=== PATIENT | female | born 1965 | race Caucasian/White ===

== ENCOUNTER → 2017-05-02 09:19 | Outpatient (CLI) | payer BC, SELFPAY ==
--- NOTE | 2017-05-02 09:21 | MM_ITS ---
MM Dig screening mamm BI w/CAD CAD Screening ORDERING PHYSICIAN : Rai Chávez MD PATIENT AGE: 51 years GENDER: Female COMPARISON: Previous mammograms: March 2015, September 2013 INDICATION: Does takes estrogen.. No new complaints. Family history. Maternal grandmother postmenopausal TECHNIQUE: Standard CC and MLO images were obtained. R2 CAD reviewed. FINDINGS: Mild to moderate fibroglandular elements throughout both breasts. No significant new findings. No dominant mass. No suspicious calcifications. Stable mild asymmetry. RIGHT BREAST: Slightly more evident glandular density inferior right breast is a stable feature with no new findings. LEFT BREAST:Stable appearing left breast with no new areas of concern. IMPRESSION: Stable bilateral mammogram with no significant new findings. Follow-up in one year adequate BI-RADS Category: 1 Negative RECOMMENDED FOLLOW-UP: 1YR - 1 YEAR FOLLOW-UP (A letter has been sent to the patient regarding results of the study.)
== END ==
PROVIDERS: Family Provider Family Medicine; PCP Family Medicine; Visit Provider Obstetrics & Gynecology
DX: Z12.31 Encounter for screening mammogram for malignant neoplasm of breast (principal)
CPT/HCPCS: 77067

== ENCOUNTER → 2017-08-08 13:20 | Outpatient (CLI) | payer BC, SELFPAY ==
--- NOTE | 2017-08-08 13:29 | CA_ITS ---
PROCEDURE: 2-D M-mode and color Doppler study INDICATIONS FOR THE TEST: Chest pain COPD Heart Murmur Tobacco Smoking+ Palpitations+ Fatigue Syncope Edema Hypertension+Diabetes Mellitus Rheumatic Fever SOB FRAZIER Obesity+Hyperlipidemia+ Family History HD Additional History PATIENT INFORMATION HEIGHT:64 WEIGHT:225 GENDER: Female B/P:130/74 2-D/M-MODE INTERPRETATION: 2-D MEASUREMENTS OBSERVED VALUES IN CMS Right Ventricular Dimension (RVDd) 2.7 Interventricular Septum (Thickness)(IVsd) 0.7 Left Ventricular Internal Dimensions(LVIDd) 4.6 Left Ventricular Posterior Wall (Thickness)(LVPWd) 1.1 Aortic Root 3.0 Aortic Cusp Separation 2.2 Left Atrial Dimensions (LAD) 4.2 2D 1. Left atrium is mildly enlarged, left ventricle is normal size, there is mild qualitative concentric left ventricular hypertrophy, visually estimated ejection fraction 55% with no obvious regional wall motion abnormality. 2. The right atrium and right ventricle are mildly enlarged with normal contractility. 3. The aortic valve is minimally thickened and fibrosed. 4. The mitral and tricuspid valve leaflets are grossly normal. 5. The pulmonic valve is poorly visualized 6. No significant pericardial effusion noted. DOPPLER INTERROGATION: Doppler interrogation of the aortic, mitral and tricuspid valvular presence of mild mitral and tricuspid regurgitation, tricuspid regurgitant jet velocity is insufficient for calculation of the right ventricular systolic pressure, grade 1 diastolic dysfunction seen without tissue Doppler evidence of raised left atrial pressure. CONCLUSION: 1. Mildly enlarged left atrium, normal left ventricular size, mild qualitative concentric left ventricular hypertrophy, visually estimated ejection fraction of 55% with no obvious regional wall motion abnormality. Grade 1 diastolic dysfunction seen without tissue Doppler evidence of raised left atrial pressure. 2. Mild mitral and tricuspid regurgitation 3. No significant pericardial effusion noted.
== END ==
PROVIDERS: Family Provider Family Medicine; PCP Family Medicine; Visit Provider Family Medicine
DX: R00.2 Palpitations (principal)
CPT/HCPCS: 93225; 93226; 93306

== ENCOUNTER → 2017-10-31 16:02 | Outpatient (CLI) | payer BC, SELFPAY ==
--- NOTE | 2017-10-31 16:13 | MR_ITS ---
MR knee LT wo con Ordering Physician: Mesis Whitley MD Patient Age: 52 years: Female HISTORY: ITS.REASON: ACUTE PAIN OF LEFT KNEE Positive Yaima sign. Effusion. Posterior knee pain. Evans a pop posterior aspect of knee. Instability one month. No trauma. No prior. TECHNIQUE: Multiplanar multisequence imaging 1.5 the MR. COMPARISON : No comparison studies. No plain films available. FINDINGS Tricompartmental arthritic changes. Tricompartmental marginal osteophytes moderately pronounced. . Focal hypertrophic changes at and anterior to the anterior tibial spine on sagittal image . Medial Compartment. Suggestive some minor chondral thinning and scuffing likely at the medial weightbearing surface of medial femoral condyle reflecting early degenerative changes. MEDIAL MENISCAL TEAR There is mild truncation at the posterior horn of the medial meniscus. Appears to be at Vertical oriented, radial tear (seen on sagittal image 10, axial 20, coronal 19, & 20) Lateral compartment . Cartilage is better maintained at the lateral femoral condyle with only some minor chondral signal irregularities posterior weightbearing surface. A may reflect some minimal chondral scuffing and irregularity. Small cystic cystic area measuring 12 x 10 mm cm just posterior to the lateral compartment. On sagittal images it appears to taper, & leads towards the meniscal-capsular junction region, but I do not see a corresponding meniscal tear. Most likely merely a small incidental synovial cyst ACL, PCL intact nicely viewed. Medial and lateral collateral ligaments intact. The quadriceps and patellar tendon intact. Patellofemoral joint. Fairly normal relationships with slight lateral dominant patellofemoral joint. Appears to be diffuse cartilage thinning at the lateral facet of patella. Marginal osteophytes surrounding margin of patella most evident superiorly and lateral margins. Joint effusion most evident at the suprapatellar bursa and its lateral aspect. Fluid overlying theq lateral margin of femoral condyle. There is also some mild edema in surrounding soft tissues about the joint with moderately pronounced superficial varicosities throughout the knee length. IMPRESSION: ...... 1. Medial meniscal tear . Prominent vertical radial tear of the posterior horn 2.. Moderate Joint effusion.. 3. Developing tricompartmental arthritic changes at the knee. ... Tricompartmental marginal osteophytes ... Chondral scuffing and irregularity, most evident at medial femoral condyle> medial compartment .... Diffuse chondral thinning and loss at the lateral facet patella 4. Other minor observations. ... Small 10 x 12 mm synovial cysts along posterior margin of the lateral compartment.. No associated meniscal tear identified ... Prominent superficial varicosities
== END ==
PROVIDERS: Family Provider Family Medicine; PCP Family Medicine; Visit Provider Family Medicine
DX: M25.562 Pain in left knee (principal); M25.462 Effusion, left knee; S83.207A Unspecified tear of unspecified meniscus, current injury, left knee, initial encounter
CPT/HCPCS: 73721

== ENCOUNTER → 2017-12-26 15:08 | Outpatient (CLI) | payer BC, SELFPAY ==
--- NOTE | 2017-12-26 15:10 | XR_ITS ---
XR foot wt bearing LT 3V HISTORY: ITS.REASON: pain ORDERING PHYSICIAN: Sherry Perez DPM PATIENT AGE: 52 years COMPARISON: None FINDINGS: No fracture or dislocation. No lytic or blastic change. There is normal mineralization.. The joint spaces are well-preserved. No significant degenerative/arthritic changes. No erosive changes evident. Minimal hypertrophic changes are present along the dorsal aspect of the navicular and cuneiforms. There is a small calcaneal spur at 6 mm. IMPRESSION: Minimal degenerative changes of the midfoot with a small calcaneal spur, no acute finding
--- NOTE | 2017-12-26 15:10 | XR_ITS ---
XR foot wt bearing RT 3V HISTORY: ITS.REASON: pain ORDERING PHYSICIAN: Sherry Perez DPM PATIENT AGE: 52 years COMPARISON: None FINDINGS: No fracture or dislocation. No lytic or blastic change. There is normal mineralization.. The joint spaces are well-preserved. No significant degenerative/arthritic changes. No erosive changes evident. There is a small calcaneal spur at 8 mm. IMPRESSION: Small calcaneal spur otherwise negative
== END ==
PROVIDERS: PCP Family Medicine; Visit Provider Podiatrist
DX: M72.2 Plantar fascial fibromatosis (principal)
CPT/HCPCS: 73630

== ENCOUNTER 2018-02-06 10:00 | Outpatient (RCR) | payer BC, SELFPAY ==
--- NOTE | 2018-01-02 13:37 | HMH.PTOPEV ---
PT Outpatient Evaluation Rehab PT Outpatient Evaluation Start: 01/02/18 13:25 Freq: Status: Active Protocol: Document 01/02/18 13:25 JANE (Rec: 01/02/18 13:37 JANE [id number]) Electronically Signed By Ab Melton, PT 01/02/18 13:25 Outpatient Therapy Subjective History Subjective History Pt reports insidious onset chronic R heel/foot pain beginning ~9-10 months ago. Pt reports multiple Rx's to R foot with very minimal improvement, includes steroid injections, cryotherapy, TE, orthotics, etc. Pt reports pain w/all wt. bearing activities, mostly medial aspect of R heel. Chief Complaint Pain Swelling Symptom Type Sharp Symptoms Relieved By Rest/Positioning Ice Symptoms Aggravated By Standing Physical Activity Walking Prior Functional Limitations Housework Standing Walking Current Functional Limitations Housework Standing Walking Symptom Description Intermittent Level of pain today (0-10) 5 Pain scale - at its best (0-10) 0 Pain scale - at its worst (0-10) 9 Ankle/Foot Eval Gait Observation General Gait Pattern Observation Antalgic Gait Assistive Device Ambulation Assistive Device None Palpation Tenderness right Ankle/Foot Palpation Findings Tenderness Trigger Point Ankle/Foot Palpation Overall Comment R GASTROC AND SOLEUS, R POST. TIB INSERTION, R PLANTAR FASCIA INSERTION ROM Ankle/Foot Dorsiflexion w/Knee Extended 0-10 Active Range Motion (degrees) Ankle/Foot Plantar Flexion Active Range 0-45 of Motion (degrees) Ankle/Foot Eversion Active Range of 0-25 Motion (degrees) Ankle/Foot Inversion Active Range of 0-50 Motion (degrees) Ankle/Foot ROM Reason Not Measured Within Functional Limits MMT Ankle Dorsiflexion Strength Grade 5 Normal Ankle Plantarflexion Strength Grade 5 Normal Foot Eversion Strength Grade 4 Good Foot Inversion Strength Grade 4 Good Outpatient Therapy Assessment Impairments Problems/Impairmments Palpation Tenderness Impaired Range of Motion Impaired Strength
== END 2018-02-06 10:01 | disposition home or self-care (01) ==
LOC: PT 10:00
PROVIDERS: Family Provider Family Medicine; PCP Family Medicine; Visit Provider Podiatrist
DX: M72.2 Plantar fascial fibromatosis (principal)
CPT/HCPCS: 97010; 97014; 97033; 97035; 97110; 97140; 97163; G0283

== ENCOUNTER → 2018-05-05 10:12 | Outpatient (CLI) | payer BC, SELFPAY ==
--- NOTE | 2018-05-05 10:14 | MM_ITS ---
MM Dig screening mamm BI w/CAD CAD Screening COMPARISON: Digital mammograms with CAD 05/02/2017 and 04/20/2016 INDICATION: There is a history of breast cancer in a patient maternal grandmother TECHNIQUE: Standard CC and MLO images were obtained. R2 CAD reviewed. FINDINGS: Moderate diffuse fibroglandular densities are seen in both breasts again slightly more prominent right breast than left there are couple mole markers left breast. There is a benign-appearing calcification in each breast. There is no new or suspicious lesion in either breast and there are no suspicious microcalcifications. IMPRESSION: Stable exam no suspicious lesion seen BI-RADS Category: 2 Benign Finding(s) RECOMMENDED FOLLOW-UP: 1YR - 1 YEAR FOLLOW-UP (A letter has been sent to the patient regarding results of the study.)
== END ==
PROVIDERS: PCP Family Medicine; Visit Provider Obstetrics & Gynecology
DX: Z12.31 Encounter for screening mammogram for malignant neoplasm of breast (principal)
CPT/HCPCS: 77067

== ENCOUNTER → 2018-07-20 08:29 | Outpatient (CLI) | payer BC, SELFPAY ==
--- NOTE | 2018-07-20 08:30 | MR_ITS ---
MR ankle RT wo/w con , MR foot RT wo/w con Ordering Physician: Sherry Perez DPM Patient Age: 53 years: Female HISTORY: ITS.REASON: pain right foot pain] plantar fasciitis. Pain extends to the back of the heel when she walks. Also right Achilles tendinitis TECHNIQUE: 1. MRI right ankle with and without contrast 2. MRI right foot with and without contrast COMPARISON 3 views right foot 12/26/2017, weightbearing: RevealedCalcaneal spurs 1. MRI RIGHT ANKLE with & without contrast Diffuse superficial soft tissue swelling is seen throughout the lower leg but becoming evident towards the along the dorsal aspect of the foot and ankle.. Lateral Ankle.. Anterior talofibular & anterior tibiofibular ligament are intact. Posterior tibial and talofibular ligament intact as well.. Normal relationships. Lateral ankle Laterally the peroneus brevis and longus tendons appear intact with normal signal. Medial ankle.: Joint space maintained Medially tibialis posterior tendon, as well as F HL and FDL appear intact. Normal signal. The dome of the talus and ankle mor no fluid. . Subtalar joint intact unremarkable.No reactive bone changes or bone edema.. Modest plantar arch 2 MRI RIGHT FOOT with & without contrast . Between these 2sets of images the Achilles tendon itself demonstrates normal signal. Note spurring at the insertion Achilles tendon but no inflammation is seen at the tendon insertion.. Homogeneous dark signal at the Achilles but with no enlargement nor enhancement. Only Minimal SQ edema fluid diffusely along the posterior margin of Achilles tendon noted. The plantar aponeurosis actually appears to be well maintained as well,. No areas of focal thickening nor enhancement nor focal edema. Only some upper normal signal at insertion of the plantar aponeurosis upon and a generous sized plantar calcaneal spur. Postcontrast images show no enhancement here. No fluid collection. The remaining aspect of the plantar aponeurosis a beneath the midfoot and towards the forefoot appears fairly smooth and satisfactory, with no definitive areas of focal thickening or inflammation The tarsals and metatarsals demonstrate fairly normal signal throughout. Only note a small focus of increased signal at the lateral distal corner of the lateral cuneiform bone, ( axial slice 17 & 16). Minor enhancement here. Suspect small subchondral cyst. Question minor associated,, upper normal enhancement at the base of the third & fourth metatarsals near where it articulates. Barely appreciable On axial postcontrast image 18. . Note increased soft tissue signal throughout the dorsal lateral aspect of forefoot on post enhancement studies-most evident at soft tissues posterior to the 4-5 and 3-4 metatarsal head interspace, with this increased signal continuing into the toes. However I suspect this may merely reflect Field inhomogeneous artifact within significant enhancement due to the inhomogeneity.. There is edema in this soft tissue of this region. Which is abnormal with a primary observation. However the signal changes here Requires correlation as I could not exclude soft tissue inflammation/cellulitis --IMPRESSION./ SUMMARY --- 1.. Generous Subcutaneous edema & soft tissue swelling seen lower throughout leg, ankle & into the foot. Most Prominent Soft tissue swelling/edema Most pronounced along the dorsal aspect foot & ankle-, dorsal to the tarsals & extending laterally 2. . No prominent bone signal changes at ankle or foot. No focal bone contusion 3. Only Tiny focus increased signal enhancement at distal lateral corner of the lateral cuneiform bone.. Suspect small developing subchondral cyst and scant arthritic changes here. 4. Achilles tendon with normal signal & appea
== END ==
PROVIDERS: PCP Family Medicine; Visit Provider Podiatrist
DX: M76.61 Achilles tendinitis, right leg (principal); M72.2 Plantar fascial fibromatosis
CPT/HCPCS: 73720; 73723

== ENCOUNTER → 2018-07-26 11:24 | Outpatient (CLI) | payer BC, SELFPAY ==
[2018-07-26 13:03] LABS: Basophils # 0.1 K/mm3 (0-0.2); Basophils % 0.5 % (0.1-2.0); Eosinophils # 0.3 K/mm3 (0.0-0.4); Eosinophils % 3.5 % (0.1-12.0); Hematocrit 41.1 % (37.0-47.0); Lymphocytes # 1.9 K/mm3 (0.7-4.5); Lymphocytes % 19.7 % (10-50); Mean Corpuscular HGB Conc 34.1 g/dL (31.8-35.4); Mean Corpuscular Hemoglobin 31.7 pg (27.0-31.2); Mean Platelet Volume 7.8 fl (7.4-10.4); Monocytes # 0.5 K/mm3 (0.1-1.0); Monocytes % 4.7 % (1.7-9.3); Neutrophils % 71.7 % (37.0-80.0); Platelet Count 264 K/mm3 (142-424); Red Blood Count 4.41 M/mm3 (4.20-5.40); Red Cell Distribution Width 13.1 % (11.5-17.5); White Blood Count 9.8 K/mm3 (4.8-10.8)
[2018-07-26 13:54] LABS: Erythrocyte Sedimentation Rate 16 mm/hr (0-30)
[2018-07-26 14:33] LABS: Alanine Aminotransferase 20 U/L (12-78); Albumin Level 3.3 gm/dL (3.4-5.0); Alkaline Phosphatase 80 U/L (46-116); Anion Gap 16.9 mEq/L (5-15); Aspartate Amino Transferase 16 U/L (15-37); Bilirubin,Total 0.3 mg/dL (0.2-1.0); Blood Urea Nitrogen 13 mg/dL (7-18); C-Reactive Protein < 0.2 mg/L (0.0-0.9); Carbon Dioxide 26 mmol/L (21.0-32.0); Chloride 103 mmol/L (98-107); Creatinine,Serum 0.75 mg/dL (0.55-1.02); Estimated Glomerular Filt Rate 81 ml/min (>60); GFR (African American) 97 ML/MIN (>60); Globulin 3.4 gm/dl (1.3-3.2); Glucose 96 mg/dL (74-106); Potassium 3.9 mmoL/L (3.5-5.1); Sodium 142 mmol/L (136-145); Total Protein,Serum 6.7 gm/dL (6.4-8.2); Uric Acid 5.8 mg/dL (2.6-7.2)
[2018-07-27 10:02] LABS: RA Latex Turbid. <10.0 IU/mL (0.0-13.9); Vitamin D 25 Hydroxy 30.9 ng/mL (30.0-100.0)
[2018-07-28 18:29] LABS: Antinuclear Antibodies, IFA Negative (.)
== END ==
PROVIDERS: Visit Provider Podiatrist
DX: M72.2 Plantar fascial fibromatosis (principal); M76.61 Achilles tendinitis, right leg; M79.671 Pain in right foot
CPT/HCPCS: 36415; 80053; 82652; 84550; 85025; 85651; 86038; 86140; 86431

== ENCOUNTER → 2019-01-29 08:50 | Outpatient (POV) | payer BC, SELFPAY | PROVIDERS: Visit Provider Specialist | DX: G57.51 Tarsal tunnel syndrome, right lower limb (principal); M79.2 Neuralgia and neuritis, unspecified; M79.671 Pain in right foot | CPT/HCPCS: 95886; 95908 ==

== ENCOUNTER → 2019-02-13 11:15 | Outpatient (CLI) | payer BC, SELFPAY | PROVIDERS: PCP Family Medicine; Visit Provider Physician Assistant | DX: J20.9 Acute bronchitis, unspecified (principal) | CPT/HCPCS: 94060; 94726; 94729 ==

== ENCOUNTER → 2019-02-23 13:35 | Outpatient (CLI) | payer BC, SELFPAY ==
--- NOTE | 2019-02-23 13:36 | CT_ITS ---
PROCEDURE: CT SINUS WO CON CLINICAL HISTORY: sinusitis Chronic sinusitis COMPARISON: No exams were available for comparison TECHNIQUE: Axial images obtained with sagittal and coronal reformats. All CT scans at the facility use one or more dose reduction, viz: automated exposure control, ma/kV adjustment per patient size (including targeted exams where dose is matched to indication, i.e. head), or iterative reconstruction technique. FINDINGS: No sinus air-fluid levels are evident. There is mild mucosal thickening involving the right maxillary sinus posteriorly and medially and involving the roof of both maxillary sinuses as the ostiomeatal unit region.. The ostiomeatal complexes are patent. No significant nasal septal deviation. There is a small amount fluid within the mastoid sinuses on both sides. The middle ears are well aerated. There is some mild hypertrophy of the adenoid tissue with some interspersed gas within the adenoid crypts. The orbits are unremarkable. Minimal TMJ arthropathy on the right. IMPRESSION: 1. Only minimal mucosal thickening of the maxillary sinuses. 2. No sinus air-fluid levels. 3. Mild amount of fluid is present in both mastoid sinuses Dictated by: Drew Tomas MD 02/23/2019 16:59 Electronically signed by Drew Tomas MD in [facility] 02/24/2019 07:33
== END ==
PROVIDERS: Visit Provider Otolaryngology
DX: J30.9 Allergic rhinitis, unspecified (principal); J34.2 Deviated nasal septum; K13.79 Other lesions of oral mucosa
CPT/HCPCS: 70486

== ENCOUNTER → 2019-06-20 09:43 | Outpatient (CLI) | payer BC, SELFPAY ==
--- NOTE | 2019-06-20 09:43 | MM_ITS ---
PROCEDURE: MM DIG SCREENING MAMM BI W/CAD CLINICAL INDICATION: Routine Screening Mammogram There is a history of breast cancer patient's maternal grandmother diagnosed after menopause. The patient is on estrogen. COMPARISON: [facility] DIG MAMM-SCREEN [facility]URA W/CAD from 04/20/2016 [facility] MM Dig screening mamm BI w/CAD from 05/02/2017 [facility] MM Dig screening mamm BI w/CAD from 05/05/2018 TECHNIQUE: Standard CC and MLO images and 3D Tomosynthesis was obtained. R2 CAD reviewed. FINDINGS: Scattered fibroglandular densities are seen throughout both breasts. There are 3 mole markers left breast. There are slightly prominent veins in both breasts but this has been noted previously. There is no suspicious lesion and no suspicious microcalcifications. IMPRESSION: Fibrofatty parenchyma with no suspicious lesions seen BI-RAD Category: 2 Benign Finding(s) FOLLOW-UP: 1YR 1 Year Follow-up (A letter has been sent to the patient regarding results of the study.) Dictated by: Dr. Steve Kwong MD 06/21/2019 13:[address] Steve Kwong MD in [place] 06/21/2019 13:48
== END ==
PROVIDERS: PCP Physician Assistant; Visit Provider Obstetrics & Gynecology
DX: Z12.31 Encounter for screening mammogram for malignant neoplasm of breast (principal)
CPT/HCPCS: 77063; 77067

== ENCOUNTER → 2020-02-27 06:26 | Outpatient (CLI) | payer BC, SELFPAY ==
--- NOTE | 2020-02-27 06:34 | CT_ITS ---
PROCEDURE: CT LUNG SCREENING CLINICAL INDICATION: CURRENT SMOKER 40 pack year smoking history COMPARISON: No exams were available for comparison TECHNIQUE: The exam was performed on a GE Light Speed [address] scanner using 2.90 mGy CTDI. A low dose helical CT CHEST was performed on a multi-detector scanner. All CT scans at the facility use one or more dose reduction, viz: automated exposure control, ma/kV adjustment per patient size (including targeted exams where dose is matched to indication, i.e. head), or iterative reconstruction technique. The LDCT was performed in a facility that meets the criteria for the screening program. Data regarding this exam was submitted to ACR which is an approved registry. The order for this exam indicates that it came as a result of a lung cancer screening counseling shard decision-making visit that included all the elements required of such a visit including smoking cessation. The radiologist interpreting this exam meets the CMS criteria for the LDCT lung cancer screening program. The exam is reported using the Lung-RADS classification scale and reported to the ACR registry. NOTE: This study was performed for the specific purposes of lung cancer screening and is not an alternative to diagnostic chest CT. RADIATION DOSE: CTDI vol(CT dose Index-volume) = 2.90mG DLP (Dose Length Product) = 103.16 mGcm FINDINGS: COPD changes. No suspicious nodules effusions or infiltrate. OTHER FINDINGS: There is faint left perihilar ground-glass attenuation nonspecific. Prior gastric surgery IMPRESSION: Lung-RADS Category category 1, negative Follow-up: Continue annual screening with LDCT in 12 months Dictated by: Drew Tomas MD 03/02/2020 12:41 Drew Tomas MD in [facility] 03/02/2020 12:41
== END ==
PROVIDERS: PCP Family Medicine; Visit Provider Family Medicine
DX: Z87.891 Personal history of nicotine dependence (principal); Z12.2 Encounter for screening for malignant neoplasm of respiratory organs

== ENCOUNTER → 2020-06-04 10:18 | Outpatient (CLI) | payer BC, SELFPAY ==
[2020-06-04 11:31] LABS: Basophils % 0.6 % (0.1-2.0); Eosinophils # 0.1 K/mm3 (0.0-0.4); Eosinophils % 1.8 % (0.1-12.0); Hematocrit 41.4 % (37.0-47.0); Hemoglobin 13.2 g/dL (12.2-16.2); Lymphocytes # 1.2 K/mm3 (0.7-4.5); Lymphocytes % 19.9 % (10-50); Mean Corpuscular HGB Conc 31.8 g/dL (31.8-35.4); Mean Corpuscular Hemoglobin 30.1 pg (27.0-31.2); Mean Corpuscular Volume 94.6 fl (81-99); Mean Platelet Volume 7.8 fl (7.4-10.4); Monocytes # 0.5 K/mm3 (0.1-1.0); Monocytes % 8.1 % (1.7-9.3); Neutrophils # 4.1 K/mm3 (1.8-7.8); Neutrophils % 69.6 % (37.0-80.0); Platelet Count 182 K/mm3 (142-424); Red Blood Count 4.37 M/mm3 (4.20-5.40); Red Cell Distribution Width 13.9 % (11.5-17.5); White Blood Count 5.9 K/mm3 (4.8-10.8)
== END ==
PROVIDERS: PCP Family Medicine; Visit Provider Physician Assistant
DX: Z20.822 Contact with and (suspected) exposure to COVID-19 (principal); U07.1 COVID-19
CPT/HCPCS: 36415; 85025; U0003

== ENCOUNTER 2020-06-05 10:43 | Outpatient (CLI) | payer BC, SELFPAY ==
[2020-06-05] VITALS (8 sets, daily range): BP systolic 120–147; BP diastolic 61–96; PULSE 56–68; RESP 16–18; TEMP 36.6–36.8; O2SAT 97–99
== END 2020-06-05 13:47 | disposition home or self-care (01) ==
PROVIDERS: PCP Family Medicine; Visit Provider Physician Assistant
DX: U07.1 COVID-19 (principal)
CPT/HCPCS: 96365

== ENCOUNTER → 2020-07-17 10:19 | Outpatient (CLI) | payer BC, SELFPAY ==
--- NOTE | 2020-07-17 10:34 | XR_ITS ---
PROCEDURE: XR SHOULDER LT MIN 2V CLINICAL INDICATION: LT SHOULDER INJURY COMPARISON: No exams were available for comparison FINDINGS: No fracture or dislocation. No lytic or blastic change. There is normal mineralization. The joint spaces are well-preserved. No significant degenerative/arthritic changes. No erosive changes evident. Other findings:None. IMPRESSION: No acute findings. Dictated by: Donna Oh 07/17/2020 15:59 Donna Oh in [facility] 07/17/2020 15:59
== END ==
PROVIDERS: PCP Physician Assistant; Visit Provider Physician Assistant
DX: S49.92XA Unspecified injury of left shoulder and upper arm, initial encounter (principal)
CPT/HCPCS: 73030

== ENCOUNTER → 2020-07-25 07:53 | Outpatient (CLI) | payer BC, SELFPAY ==
--- NOTE | 2020-07-25 08:02 | MR_ITS ---
PROCEDURE: MR SHOULDER LT WO CON CLINICAL INDICATION: Pt c/o left shoulder pain and decreased strength in lt shoulder since lifting injury in July 2020 COMPARISON: CR XR SHOULDER LT MIN 2V from 07/17/2020 TECHNIQUE: Routine multiplanar multi echo sequences are performed without gadolinium enhancement. FINDINGS: There are mild hypertrophic changes of the acromioclavicular joint with mild spurring along the inferior aspect the a chromium with mild narrowing of the subacromial space. There is complete tear of the supraspinatus tendon distally with mild retraction of the musculotendinous fibers. There is partial tear of the infraspinatus tendon distally. There is slightly high-riding humeral head. No obvious labral tear. There is a small loculated area fluid signal intensity just anterior to the base of the acromion consistent with bursitis. Subcoracoid bursitis also noted. The bicipital tendon is in place. There is a small amount of fluid deep to the deltoid posteriorly and laterally. Subscapularis and teres minor tendon appear intact with tendinopathy/tendinosis of the subscapularis tendon. The bicipital tendon is in place however there is a split tear of the bicipital tendon. The coracohumeral ligament is not identified and may be torn. IMPRESSION: 1. Complete tear of the supraspinatus tendon with mild retraction of the musculotendinous fibers. 2. Partial tear of the infraspinatus tendon 3. Bursitis of the subacromial and subcoracoid region. 4. Split tear of the bicipital tendon Dictated by: Drew Tomas MD 07/27/2020 10:23 Drew Toams MD in [place] 07/27/2020 10:23
== END ==
PROVIDERS: PCP Physician Assistant; Visit Provider Physician Assistant
DX: S49.92XD Unspecified injury of left shoulder and upper arm, subsequent encounter (principal); R29.898 Other symptoms and signs involving the musculoskeletal system
CPT/HCPCS: 73221

== ENCOUNTER → 2020-07-28 07:44 | Outpatient (CLI) | payer BC, SELFPAY ==
--- NOTE | 2020-07-28 07:47 | XR_ITS ---
PROCEDURE: XR DEXA AXIAL SKELETON CLINICAL HISTORY: POST MENOPAUSAL COMPARISON: CR BONE3 BONE DENSITOMETRY(HIP:LT SPINE from 10/16/2015 FINDINGS: The right hip BMD is 0.863 with a T-score of 0.1. The left hip BMD is 0.860 with a T-score of 0.1. The lumbar spine BMD is 1.111 with a T-score of 0.6. IMPRESSION: This patient is considered normal according to the World Health Organization criteria. Fracture risk is low. Based on these results a follow-up exam is recommended in 2 year. Dictated by: Drew Tomas MD 07/30/2020 09:42 Drew Tmoas MD in [place] 07/30/2020 09:42
--- NOTE | 2020-07-28 07:47 | MM_ITS ---
PROCEDURE: MM DIG SCREENING MAMM BI W/CAD Digital Breast Tomosynthesis Included CLINICAL INDICATION: SCREENING There is a history of breast cancer patient's maternal grandmother. The patient currently is on estrogen. COMPARISON: [facility] MM Dig screening mamm BI w/CAD from 05/02/2017 [facility] MM Dig screening mamm BI w/CAD from 05/05/2018 MG MM DIG SCREENING MAMM BI W/CAD from 06/20/2019 TECHNIQUE: Standard CC and MLO images and 3D Tomosynthesis was obtained. R2 CAD reviewed. FINDINGS: Moderate scattered fibroglandular densities are seen throughout both breasts. There are multiple mole markers left breast. There are no CAD markings. There is a benign-appearing calcification right breast. Again noted are somewhat prominent veins in both breast unchanged from previous studies. There is no suspicious lesion in either breast and no suspicious microcalcifications. IMPRESSION: Moderate breast density with no suspicious lesions seen BI-RAD Category: 2 Benign Finding(s) FOLLOW-UP: 1YR 1 Year Follow-up (A letter has been sent to the patient regarding results of the study.) Dictated by: Dr. Steve Kwong MD 07/30/2020 11:36 Dr. Steve Kwong MD in [place] 07/30/2020 11:36
== END ==
PROVIDERS: PCP Physician Assistant; Visit Provider Physician Assistant
DX: Z12.31 Encounter for screening mammogram for malignant neoplasm of breast (principal); Z78.0 Asymptomatic menopausal state
CPT/HCPCS: 77063; 77067; 77080

== ENCOUNTER → 2020-08-27 09:49 | Outpatient (CLI) | payer BC, SELFPAY ==
--- NOTE | 2020-08-27 10:01 | ECG_ITS ---
APPROVED REPORT Exam: Resting ECG HR:56 bpm ECG Measurements Heart Rate 56 AXES OK 166 P 56 QRSd 80 QRS 64 QT 434 T 30 QTc 418 Conclusion Sinus bradycardia Lste r wave progression o/w normal ECG Electronically signed by : Rell Kraft, 08/27/2020 22:19:44
[2020-08-27 10:49] LABS: Basophils # 0.1 K/mm3 (0-0.2); Basophils % 0.6 % (0.1-2.0); Eosinophils # 0.2 K/mm3 (0.0-0.4); Eosinophils % 2.1 % (0.1-12.0); Hematocrit 38.8 % (37.0-47.0); Hemoglobin 12.8 g/dL (12.2-16.2); Lymphocytes # 1.5 K/mm3 (0.7-4.5); Lymphocytes % 16.2 % (10-50); Mean Corpuscular HGB Conc 33.1 g/dL (31.8-35.4); Mean Corpuscular Hemoglobin 30.6 pg (27.0-31.2); Mean Corpuscular Volume 92.2 fl (81-99); Mean Platelet Volume 7.4 fl (7.4-10.4); Monocytes # 0.4 K/mm3 (0.1-1.0); Monocytes % 4.8 % (1.7-9.3); Neutrophils # 7.1 K/mm3 (1.8-7.8); Neutrophils % 76.4 % (37.0-80.0); Platelet Count 257 K/mm3 (142-424); Red Cell Distribution Width 14.1 % (11.5-17.5); White Blood Count 9.2 K/mm3 (4.8-10.8)
[2020-08-27 11:48] LABS: Chloride 104 mmol/L (98-107)
[2020-08-27 11:49] LABS: Potassium 4.5 mmoL/L (3.5-5.1); Sodium 135 mmol/L (136-145)
[2020-08-27 11:51] LABS: Alanine Aminotransferase 12 U/L (12-78); Aspartate Amino Transferase 17 U/L (14-36); Blood Urea Nitrogen 9 mg/dl (7-17); Estimated Glomerular Filt Rate 103 ml/min (>60); GFR (African American) 125 ML/MIN (>60)
[2020-08-27 11:52] LABS: Albumin/Globulin Ratio 1.5 (1.1-1.8); Alkaline Phosphatase 97 U/L (38-126); Anion Gap 7.5 mEq/L (5-15); Bilirubin,Total 0.4 mg/dl (0.2-1.3); Calcium 9.1 mg/dl (8.4-10.2); Carbon Dioxide 28 mmol/L (22.0-30.0); Globulin 2.6 g/dL (1.3-3.2); Glucose 97 mg/dl (74-100); Total Protein,Serum 6.6 g/dl (6.3-8.2)
== END ==
PROVIDERS: PCP Physician Assistant; Visit Provider Physician Assistant
DX: Z01.812 Encounter for preprocedural laboratory examination (principal)
CPT/HCPCS: 36415; 80053; 85025; 93005

== ENCOUNTER 2021-02-25 11:00 | Outpatient (RCR) | payer BC, SELFPAY | END 2021-02-25 11:05 | disposition home or self-care (01) | LOC: OT 11:00 | PROVIDERS: PCP Physician Assistant; Visit Provider Orthopaedic Surgery | DX: M25.512 Pain in left shoulder (principal); M75.102 Unspecified rotator cuff tear or rupture of left shoulder, not specified as traumatic | CPT/HCPCS: 97014; 97110; 97140; 97164; 97166; 97530; G0283 ==

== ENCOUNTER 2021-08-07 11:00 | Outpatient (RCR) | payer BC, SELFPAY | END 2021-08-07 11:05 | disposition home or self-care (01) | LOC: PT 11:00 | PROVIDERS: PCP Family Medicine | DX: M50.30 Other cervical disc degeneration, unspecified cervical region; M54.12 Radiculopathy, cervical region | CPT/HCPCS: 97010; 97012; 97014; 97110; 97163; 97164; G0283 ==

== ENCOUNTER → 2021-08-26 09:45 | Outpatient (CLI) | payer BC, SELFPAY ==
--- NOTE | 2021-08-26 10:07 | MM_ITS ---
PROCEDURE INFORMATION: Exam: MG Bilateral Screening 3D Mammography Exam date and time: 08/26/2021 10:01 AM Age: 56 years old Clinical indication: Screening mammogram TECHNIQUE: Imaging protocol: Bilateral Screening tomosynthesis and 2D mammography including computer-aided detection (CAD) when performed. COMPARISON: 1. MG MM DIG SCREENING MAMM BI W/CAD 07/28/2020 7:53 AM 2. MG MM DIG SCREENING MAMM BI W/CAD 06/20/2019 9:52 AM 3. MG [facility] MM Dig screening mamm BI w/CAD 05/05/2018 10:53 AM 4. MG [facility] MM Dig screening mamm BI w/CAD 05/02/2017 9:27 AM FINDINGS: MAMMOGRAPHY: Breast composition: There are scattered areas of fibroglandular density. Mass: None. Architectural distortion: No new or suspicious architectural distortion. Calcifications: No new or suspicious calcifications are present Asymmetric density: No new or suspicious asymmetric density is present Skin thickening: None. Axillary adenopathy: None. IMPRESSION: No mammographic evidence of malignancy. Recommend annual screening mammography unless otherwise clinically indicated. ASSESSMENT: BI-RADS category 1: Negative
== END ==
PROVIDERS: PCP Obstetrics & Gynecology; Visit Provider Obstetrics & Gynecology
DX: Z12.31 Encounter for screening mammogram for malignant neoplasm of breast (principal)
CPT/HCPCS: 77063; 77067

== ENCOUNTER → 2022-02-11 09:54 | Outpatient (CLI) | payer BC, SELFPAY ==
[2022-02-11 10:19] LABS: Basophils # 0.2 K/mm3 (0-0.2); Basophils % 1.6 % (0.1-2.0); Eosinophils # 0.3 K/mm3 (0.0-0.4); Eosinophils % 2.7 % (0.1-12.0); Hemoglobin 13.6 g/dL (12.2-16.2); Lymphocytes % 9.5 % (10-50); Mean Corpuscular HGB Conc 32.4 g/dL (31.8-35.4); Mean Corpuscular Hemoglobin 30.3 pg (27.0-31.2); Mean Corpuscular Volume 93.3 fl (81-99); Mean Platelet Volume 7.8 fl (7.4-10.4); Monocytes # 0.5 K/mm3 (0.1-1.0); Monocytes % 5.1 % (1.7-9.3); Neutrophils # 8.2 K/mm3 (1.8-7.8); Neutrophils % 81.1 % (37.0-80.0); Platelet Count 298 K/mm3 (142-424); White Blood Count 10.1 K/mm3 (4.8-10.8)
== END ==
PROVIDERS: PCP Family Medicine; Visit Provider Physician Assistant
DX: U07.1 COVID-19 (principal)
CPT/HCPCS: 36415; 85025; C9803; U0003; U0005

== ENCOUNTER → 2022-05-07 12:37 | Outpatient (CLI) | payer BC, SELFPAY ==
--- NOTE | 2022-05-07 12:43 | CA_ITS ---
APPROVED REPORT EXAM: Comprehensive 2D, Doppler, and color-flow Echocardiogram Lithography Contact Worker: Rosie Odgen RT(R) Ht: 5 ft 4 in Wt: 241lbs BSA: 2.12 BP: 142/82 mmHg Indications: CP, SOB, KENYA, family history of HD, COPD, smoker, palpitations, obesity, hyperlipidemia, edema. 2D Dimensions LVOT 1.87 cm (M/F) 1.5-2.5 LVEF (Kimball's) 57.70 % F: 54 - 74 LV Volume 90.80 mL F: 46 - 106 LV Volume Index 42.83 mL/m2 F: 29 - 61 LA Volume 23.00 mL LA Volume Index 10.85 mL/m2 (M/F) 16-34 M-Mode Dimensions RVDd 2.60 cm (0.9-2.6) LA Diam 4.20 cm (1.9-4.0) LVDd 5.16 cm (3.5-5.7) Ao Diam 2.58 cm (2.0-3.7) LVDs 4.20 cm (3.5-5.7) IVSd 0.72 cm (0.6-1.1) PWd 0.80 cm (0.6-1.1) EF (Teich) 38.20% FS 18.60% EDV (Teich) 127.20 mL ESV (Teich) 78.60 mL LV Diastology E Decel Time 217.00 (160-240 msec) E/A Ratio 0.9 MED E' 7.70 (< 7 cm/sec) E'/MED E' Ratio 13.12 (>14) LAT E' 9.20 (<10 cm/sec) E/LAT E' Ratio 10.98 (>14) Mitral Valve MV E Max Roman. 101.00 (40-130 cm/s) MV A Velocity 114.00 (40-130 cm/s) E/A Ratio 0.88 MV Decel. Time 217.00 (160-240 ms) MV PHT 63.00 ms Left Ventricle Left atrium is mildly enlarged, left ventricle normal size mild concentric left ventricular hypertrophy, estimated ejection fraction 55% with no regional wall motion abnormality, grade 1 diastolic dysfunction seen without tissue Doppler evidence of raise left atrial pressure. Right Ventricle Right atrium and right ventricle are mildly enlarged with normal contractility. Aortic Valve Aortic valve is minimally thickened and fibrosed there is no aortic stenosis or aortic insufficiency. Mitral Valve Mitral valve is grossly normal, there is trace mitral regurgitation. Tricuspid Valve Tricuspid grossly normal, there is trace tricuspid regurgitation, tricuspid regurgitation jet velocity is inadequate for calculation of the right ventricular systolic pressure. Pulmonic Valve Pulmonic valve is poorly visualized. Great Vessels Aortic root is normal size. Inferior vena cava is normal size with normal inspiratory collapse. Pericardium No significant pericardial effusion noted. Conclusion 1. Mild biatrial enlargement, normal left ventricular size, mild concentric left ventricular hypertrophy, estimated ejection fraction 55% with no regional wall motion abnormality, grade 1 diastolic dysfunction seen without tissue Doppler evidence of raise left atrial pressure. 2. Mildly enlarged right ventricle with normal contractility. 3. Trace mitral and tricuspid regurgitation. 4. No significant pericardial effusion noted. 5. Inferior vena cava is normal size with normal inspiratory collapse. Electronically signed by : Mesfin Montes De Oca MD 05/07/2022 17:21:48
== END ==
PROVIDERS: PCP Family Medicine; Visit Provider Family Medicine
DX: R06.02 Shortness of breath (principal)
CPT/HCPCS: 93306

== ENCOUNTER → 2022-09-17 10:44 | Outpatient (CLI) | payer BC, SELFPAY ==
--- NOTE | 2022-09-17 10:53 | MM_ITS ---
PROCEDURE INFORMATION: Exam: MG Bilateral Screening 3D Mammography Exam date and time: 09/17/2022 10:47 AM Age: 57 years old Clinical indication: Screening examination TECHNIQUE: Imaging protocol: Bilateral Screening tomosynthesis and 2D mammography including computer-aided detection (CAD) when performed. COMPARISON: 1. MG MM DIG SCREENING MAMM BI W/CAD 08/26/2021 10:01 AM 2. MG MM DIG SCREENING MAMM BI W/CAD 07/28/2020 7:53 AM FINDINGS: MAMMOGRAPHY: Breast composition: There are scattered areas of fibroglandular density. Mass: None. Architectural distortion: None. Calcifications: No suspicious calcifications. Asymmetric density: None. Skin thickening: None. Axillary adenopathy: None. IMPRESSION: No mammographic evidence of malignancy. Annual screening is recommended unless otherwise clinically indicated. ASSESSMENT: BI-RADS Category 1: Negative
== END ==
PROVIDERS: PCP Family Medicine; Visit Provider Obstetrics & Gynecology
DX: Z12.31 Encounter for screening mammogram for malignant neoplasm of breast (principal)
CPT/HCPCS: 77063; 77067

== ENCOUNTER 2023-06-03 12:18 | Outpatient (CLI) | payer BC, SELFPAY ==
--- NOTE | 2023-06-03 12:25 | XR_ITS ---
FINAL REPORT CLINICAL HISTORY: Foot pain COMPARISON: None FINDINGS: LEFT FOOT: Three views of the left foot were obtained. There is no acute fracture or dislocation. The joint spaces are intact. There is no soft tissue abnormality. There is a pes planus deformity. Calcaneal spurs are present. IMPRESSION: No acute bony abnormality. Pes planus deformity, calcaneal spurs. Reviewed, Interpreted and Dictated by Bereket Woods III, MD Transcribed by Honey Melchor Authenticated and [facility]
--- NOTE | 2023-06-03 12:25 | XR_ITS ---
FINAL REPORT CLINICAL HISTORY: Foot pain COMPARISON: None FINDINGS: RIGHT FOOT: Three views of the right foot were obtained. There is no acute fracture or dislocation. The joint spaces are intact. There is no soft tissue abnormality. A pes planus deformity is present. Calcaneal spurs are noted as well. IMPRESSION: No acute bony abnormality. Pes planus deformity and calcaneal spurs. Reviewed, Interpreted and Dictated by Bereket Woods III, MD Transcribed by Honey Melchor Authenticated and . [facility]
== END 2023-06-03 23:59 ==
LOC: RAD 12:19
PROVIDERS: PCP Family Medicine; Visit Provider Podiatrist
DX: M79.671 Pain in right foot (principal); M79.672 Pain in left foot
CPT/HCPCS: 73630

== ENCOUNTER 2023-08-08 13:22 | Outpatient (CLI) | payer BC, SELFPAY ==
--- NOTE | 2023-08-08 13:22 | MR_ITS ---
FINAL REPORT CLINICAL HISTORY: ankle pain and instability. FINDINGS: Multiplanar MR imaging of the left ankle was performed without contrast. The bony structures are intact without evidence of fracture, bone bruise or marrow edema. No osteochondral lesion is identified. The ligaments are intact without evidence of injury. The flexor and extensor tendons are intact. The Achilles tendon is intact. The posterior plantar aponeurosis is intact. No significant joint effusion is seen. The musculature is intact. There is no evidence of soft tissue mass or cyst. Moderate subcutaneous soft tissue edema is noted in the lower leg. IMPRESSION: No acute process. Moderate subcutaneous soft tissue edema in the lower leg. Reviewed, Interpreted and Dictated by Neto Gonsalez MD Transcribed by Deepika Walters Authenticated and [facility]
--- NOTE | 2023-08-08 13:22 | MR_ITS ---
FINAL REPORT CLINICAL HISTORY: Left foot pain FINDINGS: Multiplanar MR imaging of the left foot was performed without contrast. The bony structures are intact without evidence of fracture, bone bruise or marrow edema. There are mild hypertrophic changes over the dorsum of the intertarsal joints. The flexor and extensor tendons are intact. The musculature is intact. The plantar aponeurosis is intact. No soft tissue mass or cyst is identified. IMPRESSION: No focal abnormality is identified. Mild hypertrophic changes. Reviewed, Interpreted and Dictated by Neto Gonsalez MD Transcribed by Deepika Walters Authenticated and [facility]
== END 2023-08-08 23:59 | disposition home or self-care (01) ==
LOC: RAD 13:22
PROVIDERS: PCP Family Medicine; Visit Provider Podiatrist
DX: M25.572 Pain in left ankle and joints of left foot (principal); S96.912A Strain of unspecified muscle and tendon at ankle and foot level, left foot, initial encounter; S93.492A Sprain of other ligament of left ankle, initial encounter; M25.372 Other instability, left ankle; M79.672 Pain in left foot; M77.52 Other enthesopathy of left foot and ankle; G89.29 Other chronic pain
CPT/HCPCS: 73718; 73721

== ENCOUNTER 2023-09-07 10:00 | Outpatient (RCR) | payer BC, SELFPAY ==
--- NOTE | 2023-08-25 10:55 | HMH.PTOPEV ---
PT Outpatient Evaluation Rehab PT Outpatient Evaluation Start: 08/25/23 09:13 Freq: Status: Active Protocol: Document 08/25/23 09:33 JANE (Rec: 08/25/23 10:55 JANE [id number]) E-signed By Ab Melton, PT Outpatient Therapy Subjective History Subjective History Pt reports h/o chronic left foot and ankle pain beginning ~2 yrs ago. Pt reports heel pain 'is where it all seemed to start', and currently pt reports heel area, lateral aspect, and achilles area as the areas of issue. 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 New diagnosis of cancer in past 12 No months? Chief Complaint Pain,Stiff,Swelling,Weakness Symptom Type Ache,Sharp,Dull,Stabbing Symptoms Relieved By Rest/Positioning,Prescription Meds Symptoms Aggravated By Standing,Physical Activity, Walking Prior Functional Limitations Housework,Standing,Walking, Stairs Current Functional Limitations Housework,Standing,Walking, Stairs Symptom Description Constant but Variable Level of pain today (0-10) 4 Pain scale - at its best (0-10) 4 Pain scale - at its worst (0-10) 10 Ankle/Foot Eval Gait Observation General Gait Pattern Observation Antalgic Gait Assistive Device Ambulation Assistive Device None Palpation Tenderness left Ankle/Foot Palpation Findings Tenderness Ankle/Foot Palpation Overall Comment 3/4 achilles tendon, peroneal insertion, plantar fascia insertion ROM Ankle/Foot Dorsiflexion w/Knee Extended 0-10 Active Range Motion (degrees) Ankle/Foot Plantar Flexion Active Range 0-40 of Motion (degrees) Ankle/Foot Eversion Active Range of 0-15 Motion (degrees) Ankle/Foot Inversion Active Range of 0-40 Motion (degrees) Great Toe ROM Reason Not Measured Within Functional Limits MMT Ankle Dorsiflexion Strength Grade 4 Good Ankle Plantarflexion Strength Grade 4 Good Foot Eversion Strength Grade 3+ Fair+ Foot Inversion Strength Grade 4- Good- Special Tests Ankle Anterior Drawer Test Negative Left Ankle Eversion Test Negative Left Talar Tilt Test Negative Left Ankle Inversion (supination) Test Negative Left Lower Extremity Functional Index Activities Today, do you or would you have any difficulty at all with: a.Any of your usual work, housework or A little bit of difficulty school activities b. Your usual hobbies, recreational or A little bit of difficulty sporting activities c. Getting into or out of the bath No difficulty d. Walking between rooms A little bit of difficulty e. Putting on your shoes or socks A little bit of difficulty f. Squatting Moderate difficulty g. Lifting an object, like a bag of No difficulty groceries from the floor h. Performing light activities around No difficulty your home i. Performing heavy activities around No difficulty your home j. Getting into or out of a car A little bit of difficulty k. Walking 2 blocks No difficulty l. Walking a mile A little bit of difficulty m. Going up or down 10 stairs (about 1 A little bit of difficulty flight of stairs) n. Standing for 1 hour A little bit of difficulty o. Sitting for 1 hour No difficulty p. Running on even ground A little bit of difficulty q. Running on uneven ground A little bit of difficulty r. Making sharp turns while running fast A little bit of difficulty s. Hopping A little bit of difficulty t. Rolling over in bed No difficulty LEFI Score Lower Extremity Functional Index Score 66 Outpatient Therapy Assessment Impairments Problems/Impairmments Palpation Tenderness,Impaired Range of Motion,Impaired Strength,Impaired Gait Pattern ,Impaired Walking,Impaired Standing,Impaired Household Care,Impaired Stair Climbing, Subjective C/O Pain,Impaired Self Care/Self Management Prognosis Rehab Potential Good Clinical Impression Consistent with Diagnosis Yes Short Term Goals Number of Weeks 4 Decreased Palpation Tenderness Yes: 1-2/4 left ankle/foot Increase Range of Motion Yes: 75% OF WFL LEFT ANKLE Increase Strength Yes: 4/5 LEFT ANKLE Increase Ability to Walk Yes: 30MIN Increase Ability to Stand Yes: 30MIN Improve Ability For Household Care Yes: 30MIN Decrease Subjective C/O Pain Yes: 3-4/10 W/ABOVE ACTIVITIES Patient to be Ind w/ HEP Yes [facility] Goals Number of Weeks 6-8 Decreased Palpation Tenderness Yes: 0-1/4 LEFT ANKLE/FOOT Increase Range of Motion Yes: WFL LEFT ANKLE AROM Increase Strength Yes: 4+-5/5 LEFT ANKLE Improve Gait Pattern without Assistive Yes: WFL Device Increase Ability to Walk Yes: 60MIN Increase Ability to Stand Yes: 60MIN Improve Ability For Household Care Yes: 60MIN Improve Tolerance to Work Activities Yes: WFL FULL-DUTY Decrease Subjective C/O Pain Yes: 0-2/10 W/ABOVE ACTIVITIES Patient to be Ind w/ HEP Yes Outpatient Therapy Plan of Care Treatment Plan May Include Therapeutic Exercise Including Home Yes Exercise Program Manual Therapy Techniques Yes Neuromuscular Re-education Yes Therapeutic Activities to Return to Yes Previous Functional/Work Level Gait Training Yes ADL/Self Care Education Yes Dry Needling Yes Thermal Modalities Yes Electrical Stimulation Yes Ultrasound/Phonophoresis Yes Orthotics/Bracing/Splinting Yes Vasopneumatic Compression Pump Yes Manual Lymphatic Drainage Yes Eval/Re-Eval Yes Frequency Times per week 2-3 Duration Number of Weeks 6-8 Addendums This patient is a candidate for social No or vocational rehab? Patient/Guardian verbally acknowledges Yes understanding of treatment program and consents to further treatment? Patient/Guardian verbally acknowledges Yes understanding of diagnosis, prognosis and goals for treatment? Eval Complexity PT Charges 31756 - Moderate Complexity Shoulder/Elbow Eval Shoulder Objective Measurements Elbow Objective Measurements PHYSICIAN CERTIFICATION: I certify the specified therapy services for Analisa Taylor are required, authorized, and reviewed every 30 days.
== END 2023-09-07 11:10 | disposition home or self-care (01) ==
LOC: PT 10:00
PROVIDERS: Visit Provider Podiatrist
DX: M25.572 Pain in left ankle and joints of left foot (principal); M76.62 Achilles tendinitis, left leg; M25.372 Other instability, left ankle; M72.2 Plantar fascial fibromatosis; S86.312A Strain of muscle(s) and tendon(s) of peroneal muscle group at lower leg level, left leg, initial encounter; S96.91 Strain of unspecified muscle and tendon at ankle and foot level
CPT/HCPCS: 97010; 97014; 97033; 97035; 97110; 97140; 97163; 97530; G0283

== ENCOUNTER 2023-12-16 08:31 | Day surgery (SDC) | payer BC, SELFPAY ==
[2023-12-16 08:40] VITALS: BMI 38.2
[2023-12-16 08:46] VITALS: BP 121/88; PULSE 83; RESP 18; TEMP 36.2; O2SAT 96
--- NOTE | 2023-12-16 09:52 | P.PCN_ITS ---
Procedure: Date: 12/16/23 Patient Date of :: 1965 Procedure Performed:: Total colonoscopy with multiple polypectomy . Indications:: Patient is a 58-year-old female who presents for screening colonoscopy. Dr. Harrell had performed her last colonoscopy 7 years ago on 12/13/2016. She had transverse colon polyp. 5-year follow-up colonoscopy was advised. . Performing Provider:: Bereket Narayanan MD Referring Provider:: Messi Whitley MD . Sedation:: MAC sedation . Procedure:: Patient history was obtained and appropriate physical examination was performed. Patient's medications and allergies were reviewed. Informed consent was obtained after explaining the benefits, alternatives, and risks of the procedure including, but not limited to, bleeding, perforation, missed lesions, and adverse reaction to anesthesia medications. Patient was transported to endoscopy procedure room. Patient was connected to monitoring devices. Throughout the procedure the patient's blood pressure, pulse, and oxygen saturations were monitored continuously. Patient identification and planned procedure were verified by the staff. Patient was positioned in lateral decubitus position. Digital anorectal exam w as performed. Variable stiffness Olympus colonoscope was inserted and advanced under direct visualization to the cecum. Adequacy of the colonic preparation was noted. The colonoscope was then slowly withdrawn while carefully examining the color, texture, anatomy, and integrity of the mucosoa circumferentially. Within the rectum retroflexion was performed. Colonoscope was then withdrawn. Impression: There was a large amount of enteric liquid with bubbles throughout the colon and some opaque particulate liquid stool. With high-volume trans colonoscopic irrigation and suctioning this was able to be cleared. Within the cecum there was somewhat of an irregular sessile adenomatous polyp. Attempt was made to remove this with cold snare unsuccessfully and it was therefore removed with hot snare. Hemoclip was deployed at the site. At the hepatic flexure there was a small adenomatous polyp removed with cold cutting snare. Transverse colon there was a small adenomatous appearing polyp removed with cold snare. In the sigmoid colon there was a small adenomatous appearing polyp removed with cold snare. The rectosigmoid region there were several hyperplastic appearing polyps which w ere sampled with biopsy forceps. . Findings:: Polyps as noted above (possible four adenomatous polyps with the largest being in the cecum.) Recommendations:: Likely repeat colonoscopy 2 to 3 years pending pathology Complications:: None immediately apparent Estimated blood obtained (mL): 2 Colonoscopy Component Colonoscopy Component Was a colonoscopy performed during today's procedure?: Yes Recommended follow up colonoscopy of at least 10 years?: No If no, follow up colonoscopy recommended in ___ years?: 3 Reason for not recommending >/= 10 yr follow-up interval?: Polyps
[2023-12-16 10:07] VITALS: O2SAT 96
--- NOTE | 2023-12-16 10:20 | EXP.ANES.CKL ---
[facility] Disclaimer: The information contained in this section may have been updated after the patient was seen, as this information can be updated by other users. Medical History Sleep apnea Bronchitis Anxiety and depression Skin cancer History of hypertension Vasomotor symptoms due to menopause Surgical History Hx of partial thyroidectomy History of tonsillectomy Hx of removal of cyst History of cholecystectomy H/O gastric sleeve Hx of shoulder surgery History of hysterectomy Family History Other Breast cancer Cervical cancer Colon cancer Social History (Updated 12/16/23 @ 08:43 by Palmira Noe RN) Smoking Status: Current every day smoker tobacco type: cigarettes packs per day: 1 alcohol intake: never substance use type: marijuana current occupational status: employed Travel in the last 8 weeks: None household members: family housing: house caffeine: Yes [facility] Anesthesia Checklist Patient Identification Patient Identification: Arm Band Structural Data Admitted From: Home Planned Operative Procedure/s: Colonoscopy Consent for Planned Operative Procedure(s) Verified: Yes Verified Documents: Surgical Consent and History and Physical NPO Status Verified Time NPO: 00:00 Additional verifications Anesthesia Reactions: Yes (n/v) Hx Blood Transfusions: No Blood Transfusion Reaction: No Airway Assessment Mallampati Score:: Class II C-Spine Mobility Assessed: Yes TMJ Mobility Assessed: Yes Dentition: Good Dentition Neurological Assessment Level of Consciousness: Awake, Alert and Appropriate Anesthesia Plan Anesthesia Risk discussed: Yes Anesthesia Plan: Verified ASA Class: III Anesthesia Type: MAC
[2023-12-16 10:55] VITALS: BP 128/76; PULSE 85; RESP 18; TEMP 36.6; O2SAT 94
[2023-12-16 11:05] VITALS: BP 141/68; PULSE 87; RESP 18; O2SAT 97
[2023-12-16 11:15] VITALS: BP 144/75; PULSE 74; RESP 18; O2SAT 98
[2023-12-16 11:25] VITALS: BP 150/77; PULSE 70; RESP 16; O2SAT 98
== END 2023-12-16 11:36 | disposition home or self-care (01) ==
PROVIDERS: PCP Family Medicine; Visit Provider Surgery
PROC: 0DJD8ZZ Inspection of Lower Intestinal Tract, Via Natural or Artificial Opening Endoscopic (ICD-10-PCS; CPT 45385; principal; 2023-12-16 09:30)
DX: Z12.11 Encounter for screening for malignant neoplasm of colon (principal); Z09 Encounter for follow-up examination after completed treatment for conditions other than malignant neoplasm; Z86.010 Personal history of colon polyps; D12.7 Benign neoplasm of rectosigmoid junction; D12.0 Benign neoplasm of cecum; D12.3 Benign neoplasm of transverse colon; D12.5 Benign neoplasm of sigmoid colon
CPT/HCPCS: 45385; 45380; J2704; J7120

== ENCOUNTER 2024-03-26 13:31 | Outpatient (CLI) | payer MEDICAID, SELFPAY ==
[2024-03-26 18:37] LABS: Basophils # 0.1 K/mm3 (0-0.2); Basophils % 0.7 % (0.1-2.0); Eosinophils # 0.6 K/mm3 (0.0-0.4); Eosinophils % 5.5 % (0.1-12.0); Hematocrit 43.3 % (37.0-47.0); Hemoglobin 14.4 g/dL (12.2-16.2); Lymphocytes # 1.8 K/mm3 (0.7-4.5); Lymphocytes % 17.4 % (10-50); Mean Corpuscular HGB Conc 33.2 g/dL (31.8-35.4); Mean Corpuscular Hemoglobin 30.5 pg (27.0-31.2); Mean Platelet Volume 8.7 fl (7.4-10.4); Monocytes # 0.5 K/mm3 (0.1-1.0); Monocytes % 5.1 % (1.7-9.3); Neutrophils # 7.3 K/mm3 (1.8-7.8); Neutrophils % 71.2 % (37.0-80.0); Platelet Count 297 K/mm3 (142-424); Red Blood Count 4.71 M/mm3 (4.20-5.40); Red Cell Distribution Width 13.7 % (11.5-17.5); White Blood Count 10.3 K/mm3 (4.8-10.8)
[2024-03-26 19:12] LABS: Alanine Aminotransferase 16 U/L (12-78); Albumin/Globulin Ratio 1.7 (1.1-1.8); Alkaline Phosphatase 87 U/L (38-126); Anion Gap 10.5 mEq/L (5-15); Aspartate Amino Transferase 22 U/L (14-36); Bilirubin,Total 0.5 mg/dl (0.2-1.3); Blood Urea Nitrogen 15 mg/dl (7-17); Calcium 9.2 mg/dl (8.4-10.2); Carbon Dioxide 27 mmol/L (22.0-30.0); Chloride 105 mmol/L (98-107); Chol/HDL Ratio 3.9 (1-3.5); Cholesterol 172 mg/dl (140-200); Estimated Glomerular Filt Rate 73 ml/min (>60); GFR (African American) 89 ML/MIN (>60); Globulin 2.4 g/dL (1.3-3.2); Glucose 110 mg/dl (74-100); HDL Cholesterol 44 mg/dl (40-60); Potassium 4.5 mmoL/L (3.5-5.1); Sodium 138 mmol/L (136-145); Total Protein,Serum 6.4 g/dl (6.3-8.2); Triglycerides 235 mg/dl (30-150); VLDL Cholesterol 47 mg/dL (0-40)
[2024-03-26 19:29] LABS: 25-OH Vitamin D, Total 42.2 ng/mL (30-100)
[2024-03-26 19:47] LABS: Thyroid Stimulating Hormone 1.11 uIU/mL (0.465-4.68)
[2024-03-26 20:11] LABS: HIV (1&2) Antibody Rapid NONREACTIVE (NONREACTIVE)
[2024-03-26 21:23] LABS: Creatinine,Urine Random 129 mg/dL (Not Estab.)
[2024-03-26 21:34] LABS: Hemoglobin A1C 6.1 % (4.0-6.0)
[2024-03-26 21:35] LABS: Microalbumin < 6.000 mg/L (0-16.7)
[2024-03-28 08:42] LABS: HBsAg Screen Negative (Negative); HCV Ab Non Reactive (Non Reactive); Hep A Ab, IGM Negative (Negative); Hep B Core Ab, IgM Negative (Negative)
== END 2024-03-26 23:59 | disposition home or self-care (01) ==
LOC: LAB.DROPOF 03-27 15:19
PROVIDERS: PCP Internal Medicine; Visit Provider Internal Medicine
DX: E78.2 Mixed hyperlipidemia (principal); I10 Essential (primary) hypertension; E66.9 Obesity, unspecified; Z11.59 Encounter for screening for other viral diseases; R53.83 Other fatigue; Z13.1 Encounter for screening for diabetes mellitus; R73.03 Prediabetes; Z86.19 Personal history of other infectious and parasitic diseases; Z72.0 Tobacco use
CPT/HCPCS: 80050; 80053; 80061; 80074; 82043; 82306; 82570; 83036; 84443; 85025; 87389

== ENCOUNTER 2024-04-02 08:57 | Outpatient (CLI) | payer MEDICAID, SELFPAY ==
--- NOTE | 2024-04-02 09:01 | XR_ITS ---
FINAL REPORT TECHNIQUE: Bone densitometry calculations of the lumbar spine and left hip were obtained. CLINICAL HISTORY: screening osteoporosis FINDINGS: Using L1-4, the bone mineral density of the spine is 1.133 g/cm2, corresponding to T-score of 0.8. Using the left hip, the bone mineral density of the femoral neck is 0.35 g/cm2, corresponding to a T-score of -0.1. NOTE: T-score: Standard deviation compared with peak bone mass of young adult mean. *Following the recommendations of the International Society of Bone densitometry, classification of hip BMD is based on the lower of two T-scores; total hip or femoral neck. IMPRESSION: Normal bone mineral density of the lumbar spine and hip. Reviewed, Interpreted and Dictated by Dagoberto Pillai MD Transcribed by Honey Melchor Authenticated and [facility]
== END 2024-04-02 23:59 | disposition home or self-care (01) ==
LOC: RAD 08:58
PROVIDERS: PCP Internal Medicine; Visit Provider Internal Medicine
DX: Z13.820 Encounter for screening for osteoporosis (principal); Z82.62 Family history of osteoporosis; E66.01 Morbid (severe) obesity due to excess calories; Z68.36 Body mass index [BMI] 36.0-36.9, adult
CPT/HCPCS: 77080

== ENCOUNTER 2024-05-04 14:42 | Outpatient (CLI) | payer MEDICAID, SELFPAY ==
--- NOTE | 2024-05-04 14:43 | CT_ITS ---
FINAL REPORT TECHNIQUE: Axial CT without IV contrast administration using low dose protocol. This study was performed with techniques to keep radiation doses as low as reasonably achievable, (ALARA). Individualized dose reduction techniques using automated exposure control or adjustment of mA and/or kV according to the patient's size were employed. CLINICAL HISTORY: lung cancer screening current smoker 1ppd x5o years COMPARISON: Report only dated 02/27/2020 FINDINGS: CT CHEST LOW DOSE SCREENING DOSE: CTDI vol: 2.90 mGy, DLP: Nine 6.38 mGy*cm No acute lung disease is present . No pulmonary lesions are seen suspicious for neoplasm. No pleural or pericardial effusion is seen . There is a 5 mm groundglass nodule in the right upper lobe well-seen on image 23 of series 4. There is a 4 mm groundglass nodule in the right lower lobe well-seen on image 36. Tiny nodules in the left lower lobe most evident on images 46-47 measuring up to 3 mm. Tiny scattered nodules in the left upper lobe measure 3 mm or less however 1 measures 4 mm. This is best seen on image 22. Limited images of the upper abdomen show post gastric bypass changes. IMPRESSION: Multi small nodules, likely benign. LUNG RADS CATEGORY 2 RECOMMENDATION: 12 month LDCT follow up Reviewed, Interpreted and Dictated by Dagoberto Pillai MD Transcribed by Cady Crook Authenticated and . [facility]
== END 2024-05-04 23:59 | disposition home or self-care (01) ==
LOC: RAD 14:43
PROVIDERS: PCP Internal Medicine; Visit Provider Internal Medicine
DX: Z87.891 Personal history of nicotine dependence (principal)
CPT/HCPCS: 71271